=== PATIENT | male | born 1975 | race American Indian/Alaskan Native ===

== ENCOUNTER 2016-03-14 21:16 | Emergency (ER) | payer OTHER ==
[2016-03-14] MEDS ORDERED: ATIVAN IM PRN (22:11)
[2016-03-14] MEDS ORDERED: BENADRYL IM PRN (22:11)
[2016-03-14] MEDS ORDERED: HALDOL IM PRN (22:11)
--- NOTE | 2016-03-14 22:16 | Emergency Department Report ---
HPI - General Chief Complaint: Psych Time Seen by Provider: 03/14/16 22:03 - [facility] HPI: Marquez 12 The patient is a 40-year-old male presenting with a chief complaint of visual hallucinations. Patient denies having any psychiatric history but states for 4- 5 years he's had auditory hallucinations which included hearing "ringing" and "high frequencies." The patient also admits to visual hallucinations which include "ghosts" and "cramping stuff" for the past 2 years. The patient states visual hallucinations have worsened recently. The patient states he has never sought medical attention for these complaints. Patient denies suicidal or homicidal ideation Location: Mental state Duration: [see above] Quality: Visual and auditory hallucinations Severity: Moderate Modifying factors: Unknown Context: [see above] Mode of transportation: [not driving] ED Past Medical Hx - Past Medical History Previous Medical History?: No Hx Psychiatric Treatment: No (denies) - Surgical History Past Surgical History?: No - Family History Family history: no significant - Social History Smoking Status: Current Every Day Smoker (1/2 pack per day) Substance Use Type: Marijuana - Medications Home Medications: Home Medications Medication Instructions Recorded Confirmed Last Taken Type Unobtainable 03/14/16 03/14/16 Unknown History ED Review of Systems ROS: Stated complaint: MH EVALUATION Other details as noted in HPI Comment: All other systems reviewed and negative Constitutional: denies: chills, fever Eyes: denies: eye pain, eye discharge, vision change ENT: denies: ear pain, throat pain Respiratory: denies: cough, shortness of breath, wheezing Cardiovascular: denies: chest pain, palpitations Endocrine: no symptoms reported Gastrointestinal: denies: abdominal pain, nausea, diarrhea Genitourinary: denies: urgency, dysuria Musculoskeletal: denies: back pain, joint swelling, arthralgia Skin: denies: rash, lesions Neurological: denies: headache, weakness, paresthesias Psychiatric: auditory hallucinations, visual hallucinations. denies: homicidal thoughts, suicidal thoughts Hematological/Lymphatic: denies: easy bleeding, easy bruising Physical Exam - Physical Exam Vital Signs: Vital Signs 03/14/16 21:45 Temperature 98 F Pulse Rate 73 Respiratory 18 Rate Blood Pressure 141/96 O2 Sat by Pulse 100 Oximetry Physical Exam: GENERAL: The patient is well-developed well-nourished male sitting in chair not appearing to be in acute distress HEENT: Normocephalic. Atraumatic. Extraocular motions are intact. Patient has moist mucous membranes. NECK: Supple. No meningitic signs are noted. Trachea midline CHEST/LUNGS: Clear to auscultation. There is no respiratory distress noted. HEART/CARDIOVASCULAR: Regular. There is no tachycardia. There is no gallop rub or murmur. ABDOMEN: Abdomen is soft, nontender. Patient has normal bowel sounds. There is no abdominal distention. SKIN: There is no rash. There is no edema. There is no diaphoresis. NEURO: The patient is awake, alert, and oriented. The patient is mostly cooperative but appears agitated with certain questions. The patient has no focal neurologic deficits. The patient has normal speech. Cranial nerves II through XII grossly intact MUSCULOSKELETAL: There is no evidence of acute injury. ED Course Vital Signs 03/14/16 21:45 Temperature 98 F Pulse Rate 73 Respiratory 18 Rate Blood Pressure 141/96 O2 Sat by Pulse 100 Oximetry ED Medical Decision Making - Lab Data Result diagrams: 03/14/16 22:11 03/14/16 22:11 Laboratory Tests 03/14/16 03/14/16 03/14/16 22:11 22:11 22:11 WBC 7.3 RBC 4.33 Hgb 12.6 Hct 37.6 MCV 87 MCH 29 MCHC 33 RDW 14.7 Plt Count 305 Lymph % (Auto) 34.7 [place] % (Auto) 6.4 Eos % (Auto) 1.8 Baso % (Auto) 1.1 Lymph # 2.5 [place] # 0.5 Eos # 0.1 Baso # 0.1 Seg Neutrophils % 56.0 Seg Neutrophils # 4.1 Sodium 137 Potassium 4.1 Chloride 99.2 Carbon Dioxide 26 Anion Gap 16 BUN 10 Creatinine 0.9 Estimated GFR > 60 BUN/Creatinine Ratio 11.11 Glucose 104 H Calcium 9.3 TSH Free T4 Urine Color Urine Turbidity Urine pH Ur Specific [place] Urine Protein Urine Glucose (UA) Urine Ketones Urine Blood Urine Nitrite Urine Bilirubin Urine Urobilinogen Ur Leukocyte Esterase Urine WBC (Auto) Urine RBC (Auto) U Marijuana (THC) Screen Plasma/Serum Alcohol < 0.01 03/14/16 03/14/16 03/14/16 22:13 23:05 23:05 WBC RBC Hgb Hct MCV MCH MCHC RDW Plt Count Lymph % (Auto) [place] % (Auto) Eos % (Auto) Baso % (Auto) Lymph # [place] # Eos # Baso # Seg Neutrophils % Seg Neutrophils # Sodium Potassium Chloride Carbon Dioxide Anion Gap BUN Creatinine Estimated GFR BUN/Creatinine Ratio Glucose Calcium TSH 1.480 Free T4 1.35 Urine Color Straw Urine Turbidity Clear Urine pH 6.0 Ur Specific [place] 1.005 Urine Protein <15 mg/dl Urine Glucose (UA) Neg Urine Ketones Neg Urine Blood Neg Urine Nitrite Neg Urine Bilirubin Neg Urine Urobilinogen < 2.0 Ur Leukocyte Esterase Neg Urine WBC (Auto) < 1.0 Urine RBC (Auto) 1.0 U Marijuana (THC) Screen Presumptive positive Plasma/Serum Alcohol - Radiology Data Radiology results: report reviewed (CT head), image reviewed (CT head) CT head (read by radiologist)-negative CT of the head. No acute intracranial process noted. Chronic left maxillary sinusitis. - Differential Diagnosis schizophrenia, psychosis, substance abuse Critical care attestation.: If time is entered above; I have spent that time in minutes in the direct care of this critically ill patient, excluding procedure time. ED Disposition Clinical Impression: Visual hallucinations, Auditory hallucinations Disposition: DC/TX PSY HOSP/PSY UNIT Is pt being admited?: No Does the pt Need Aspirin: No Condition: Fair Time of Disposition: 00:01 (awaiting acceptance)
[2016-03-14 22:36] LABS: Basophils % (Auto) 1.1 % (0.0-1.8); Eosinophils % (Auto) 1.8 % (0.0-4.3); Hematocrit 37.6 % (35.5-45.6); Hemoglobin 12.6 gm/dl (11.8-15.2); Mean Corpuscular HGB Conc 33 % (32-34); Mean Corpuscular Hemoglobin 29 pg (28-32); Mean Corpuscular Volume 87 fl (84-94); Platelet Count 305 K/mm3 (140-440); Red Blood Count 4.33 M/mm3 (3.65-5.03); Red Cell Distribution Width 14.7 % (13.2-15.2); White Blood Count 7.3 K/mm3 (4.5-11.0)
--- NOTE | 2016-03-14 23:02 | Cat Scan Report ---
FINAL REPORT EXAM: CT HEAD/BRAIN WO CON HISTORY: Medical Clearance Psych TECHNIQUE: Standard unenhanced CT of the head at 5.0 millimeter axial increments. PRIORS: None. FINDINGS: The ventricular system is normal in size and configuration. There is no evidence for parenchymal volume loss. There is no evidence for mass lesion, mass effect, midline shift, acute intracranial hemorrhage, or acute ischemia/ infarction. No evidence for acute skull fracture is seen. No abnormality in the overlying scalp soft tissues is seen. There is mucosal thickening in the left maxillary sinus related to mild chronic sinusitis. IMPRESSION: Negative CT of the head. No acute intracranial process noted. Chronic left maxillary sinusitis
[2016-03-14 23:16] LABS: BUN/Creatinine Ratio 11.11; Blood Urea Nitrogen 10 mg/dL (9-20); Calcium 9.3 mg/dL (8.4-10.2); Carbon Dioxide 26 mmol/L (22-30); Chloride 99.2 mmol/L (98-107); Glucose 104 mg/dL (75-100); Potassium 4.1 mmol/L (3.6-5.0); Sodium 137 mmol/L (137-145)
[2016-03-14 23:20] LABS: Urine Drugs of Abuse Note Disclamer
[2016-03-14 23:29] LABS: Anion Gap 16 mmol/L
[2016-03-14 23:43] LABS: Bilirubin,Urine NEG (Negative); Blood,Urine NEG (Negative); Ketones,Urine NEG (Negative); Leukocyte Esterase,Urine NEG (Negative); Nitrite,Urine NEG (Negative); Protein,Urine <15 mg/dL mg/dL (Negative); Urobilinogen,Urine < 2.0 mg/dL (<2.0); WBC,Urine < 1.0 /HPF (0.0-6.0)
--- NOTE | 2016-03-16 14:52 | Event Note ---
Date: 03/16/16 Vital signs reviewed. Await psychiatric placement. Vital Signs 03/14/16 03/15/16 03/15/16 21:45 08:49 10:39 Temperature 98 F 98 F Pulse Rate 73 79 Respiratory 18 18 18 Rate Blood Pressure 141/96 Blood Pressure 146/95 [right] O2 Sat by Pulse 100 100 98 Oximetry 03/16/16 03/16/16 03/16/16 05:24 08:04 10:00 Temperature 98.2 F 98.2 F Pulse Rate 82 65 Respiratory 18 18 16 Rate Blood Pressure Blood Pressure 126/63 114/73 [right] O2 Sat by Pulse 98 98 100 Oximetry
--- NOTE | 2016-03-18 01:23 | Event Note ---
Date: 03/18/16 Vital signs are reviewed. No recent events. awaits psychiatric placement Vital Signs 03/14/16 03/15/16 03/15/16 21:45 08:49 10:39 Temperature 98 F 98 F Pulse Rate 73 79 Respiratory 18 18 18 Rate Blood Pressure 141/96 Blood Pressure 146/95 [right] O2 Sat by Pulse 100 100 98 Oximetry 03/16/16 03/16/16 03/16/16 05:24 08:04 10:00 Temperature 98.2 F 98.2 F Pulse Rate 82 65 Respiratory 18 18 16 Rate Blood Pressure Blood Pressure 126/63 114/73 [right] O2 Sat by Pulse 98 98 100 Oximetry 03/16/16 03/17/16 03/17/16 19:47 09:33 09:34 Temperature 97.7 F Pulse Rate 66 Respiratory 18 18 18 Rate Blood Pressure Blood Pressure 123/80 [right] O2 Sat by Pulse 100 Oximetry 03/17/16 20:21 Temperature Pulse Rate Respiratory 18 Rate Blood Pressure Blood Pressure [right] O2 Sat by Pulse Oximetry
--- NOTE | 2016-03-20 21:45 | Emergency Department Report ---
Blank Doc - Documentation Documentation: Vital signs reviewed. Patient is remaining calm requiring no intervention. Patient has reportedly been accepted at [facility]. Patient is currently awaiting bed assignment and transport.
--- NOTE | 2016-03-21 15:34 | Event Note ---
Date: 03/21/16 Vital signs reviewed. Patient awaits psychiatric placement. Vital Signs 03/14/16 03/15/16 03/15/16 21:45 08:49 10:39 Temperature 98 F 98 F Pulse Rate 73 79 Respiratory 18 18 18 Rate Blood Pressure 141/96 Blood Pressure 146/95 [right] O2 Sat by Pulse 100 100 98 Oximetry 03/16/16 03/16/16 03/16/16 05:24 08:04 10:00 Temperature 98.2 F 98.2 F Pulse Rate 82 65 Respiratory 18 18 16 Rate Blood Pressure Blood Pressure 126/63 114/73 [right] O2 Sat by Pulse 98 98 100 Oximetry 03/16/16 03/17/16 03/17/16 19:47 09:33 09:34 Temperature 97.7 F Pulse Rate 66 Respiratory 18 18 18 Rate Blood Pressure Blood Pressure 123/80 [right] O2 Sat by Pulse 100 Oximetry 03/17/16 03/17/16 03/18/16 20:21 21:00 08:00 Temperature 97.9 F Pulse Rate 71 Respiratory 18 18 18 Rate Blood Pressure Blood Pressure 150/94 [right] O2 Sat by Pulse 98 98 Oximetry 03/18/16 03/18/16 03/19/16 09:00 21:00 09:00 Temperature 98.1 F 98.9 F Pulse Rate 115 H 98 H Respiratory 16 18 20 Rate Blood Pressure Blood Pressure 133/100 128/88 [right] O2 Sat by Pulse 97 98 98 Oximetry 03/19/16 03/20/16 03/20/16 19:53 07:59 08:01 Temperature 97.9 F 98 F Pulse Rate 61 71 Respiratory 14 15 15 Rate Blood Pressure Blood Pressure 102/62 123/87 [right] O2 Sat by Pulse 100 99 99 Oximetry 03/20/16 20:00 Temperature 98.2 F Pulse Rate 84 Respiratory 18 Rate Blood Pressure Blood Pressure 116/70 [right] O2 Sat by Pulse 98 Oximetry
[2016-03-21 18:22] VITALS: BP 128/80
== END 2016-03-21 22:30 ==
LOC: EEVIPCON 21:16 → ED 21:16
DX: R44.1 Visual hallucinations (principal); R44.0 Auditory hallucinations; F17.210 Nicotine dependence, cigarettes, uncomplicated; F12.90 Cannabis use, unspecified, uncomplicated
CPT/HCPCS: 36415; 70450; 80048; 80307; 81001; 84439; 84443; 85025; 96372; 99285; G0480; J2060; 80320; J1200

== ENCOUNTER 2019-06-22 16:28 | Emergency (ER) | payer SELFPAY ==
[2019-06-22 17:21] LABS: Bilirubin,Urine NEG (Negative); Blood,Urine NEG (Negative); Color,Urine Yellow (Yellow); Mucus,Urine FEW /HPF
[2019-06-22 17:27] LABS: Basophils % (Auto) 0.5 % (0.0-1.8); Eosinophils % (Auto) 0.7 % (0.0-4.3); Hematocrit 40.3 % (35.5-45.6); Hemoglobin 13.5 gm/dl (11.8-15.2); Lymphocytes # (Auto) 2.1 K/mm3 (1.2-5.4); Lymphocytes % (Auto) 29.8 % (13.4-35.0); Mean Corpuscular HGB Conc 34 % (32-34); Mean Corpuscular Volume 86 fl (84-94); Monocytes # (Auto) 0.4 K/mm3 (0.0-0.8); Platelet Count 205 K/mm3 (140-440); Red Blood Count 4.69 M/mm3 (3.65-5.03); Red Cell Distribution Width 14.7 % (13.2-15.2)
[2019-06-22 17:30] LABS: Amphetamine Screen,Urine PRESUMPTIVE NEGATIVE; Benzodiazepines Screen,Urine PRESUMPTIVE NEGATIVE; Cannabinoid Screen,Urine PRESUMPTIVE NEGATIVE; Cocaine Screen,Urine PRESUMPTIVE NEGATIVE; Methadone Screen,Urine PRESUMPTIVE NEGATIVE; Opiate Screen,Urine PRESUMPTIVE NEGATIVE
[2019-06-22 17:46] LABS: BUN/Creatinine Ratio 11; Blood Urea Nitrogen 12 mg/dL (9-20); Calcium 9.7 mg/dL (8.4-10.2); Hemolysis Index 6
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
--- NOTE | 2019-06-23 10:35 | Consultation ---
History of Present Illness - Reason for Consult Consult date: 06/23/19 Reason for consult: Psych eval Requesting physician: BREANNA OSUNA - Chief Complaint Chief complaint: I don't know why I am here - History of Present Psychiatric Illness The patient is a 43 single disabled AAM with history of Schizophrenia. His family called the police to bring him to the ED due to concerns for his mental health. Psychiatry consulted to evaluate patient and recommend disposition. Patient is guarded, states that he does not know why he is here, denies AVH//SI/HI. MH Studio Assistant's Note Patient is a 43 yo AA presenting to ED for MHE, as collateral reports delusional thinking, aggression towards parents and police. During ax, pt presented with cooperative behaviors, anxious mood and incongruent affect. Pt denies A/V Hallucinations, Paranoia. According to collateral, pt walks up and down the street screaming and yelling, paranoid. According to the mother, pt thinks the light fixtures are talking to him. Pt has removed light bulbs from the house. Pt thinks beams are coming from the judy. Pt is unable to hold a job more than two months. Pt denies hx of attempts. Pt denies HI. Pt's mother reports a hx of Schizophrenia. Pt denies alcohol or substance use or abuse. Pt reports resides with his parents in [place], [place]. Pt does not receive SSI. PAST PSYCHIATRIC HISTORY: Schizophrenia Family Psychiatric History None reported or documented REVIEW OF SYSTEMS Constitutional: Negative for weight loss ENT: Negative for stridor Respiratory: Negative for cough or hemoptysis All other systems reviewed and are negative MENTAL STATUS General Appearance and Behavior: age appropriate, good eye contact, cooperative with questioning and polite Cooperation: Cooperative Psychomotor Behavior: within normal limits Mood: OK Affect and affective range: Congruent with stated mood Thought Process: Fluent/Logical and Goal-directed Thought Content: paranoid Speech: Normal volume and Regular rate and rhythm Intellectual Functioning Average Suicidal Ideation: Denies SI Homicidal Ideation: Denies HI Impulse Control: intact Insight and Judgment: normal insight and judgment Memory: Normal Attention: Normal Orientation: alert and oriented Diagnosis: Paranoid Schizophrenia RECOMMENDATIONS MEDICATIONS: Patient declined meds PSYCHOTHERAPY: Supportive psychotherapy provided MEDICAL: Per primary team CARRIER ASSOCIATE: Yes DISPOSITION: Acute inpatient psychiatric hospitalization LEGAL STATUS: 1013 FOLLOW-UP: Will follow Please contact with any questions and/or concerns. Medications and Allergies Allergies Allergy/AdvReac Type Severity Reaction Status Date / Time No Known Allergies Allergy Unverified 03/14/16 21:45 Home Medications Medication Instructions Recorded Confirmed Last Taken Type risperiDONE [RisperDAL] 1 mg PO QDAY 06/22/19 06/22/19 06/21/19 History Mental Status Exam - Vital signs Last Vital Signs Temp 98.5 F 06/23/19 08:29 Pulse 63 06/23/19 08:29 Resp 18 06/23/19 08:29 BP 116/80 06/23/19 08:29 Pulse Ox 100 06/23/19 08:29 Results Result Diagrams: 06/22/19 17:08 06/22/19 17:08 Abnormal lab results 06/22/19 06/22/19 Range/Units 17:08 17:08 Salicylates < 0.3 L (2.8-20.0) mg/dL Acetaminophen < 5.0 L (10.0-30.0) ug/mL All other labs normal. Assessment and Plan - Psychiatric problem (1) Paranoid schizophrenia Current Visit: Yes Status: Acute
[2019-06-23 18:13] VITALS: BP 115/75
== END 2019-06-23 18:14 ==
LOC: ED 16:28
DX: F29 Unspecified psychosis not due to a substance or known physiological condition (principal); F17.200 Nicotine dependence, unspecified, uncomplicated; Z13.39 Encounter for screening examination for other mental health and behavioral disorders; Z79.899 Other long term (current) drug therapy
CPT/HCPCS: 36415; 80048; 80307; 80320; 81001; 85025; G0480